=== PATIENT | female | born 1950 | race Caucasian/White ===

== ENCOUNTER 2018-06-28 13:51 | Inpatient (IN) ==
[2018-06-28 15:11] LABS: Basophils % 0.2 %; Hematocrit 33.9 % (35.3-44.9); Hemoglobin 11.3 g/dL (11.5-15.4); Immature Granulocytes % 1.8 % (0-4); Lymphocytes % 5.8 %; Mean Corpuscular HGB Conc 33.3 g/dL (31.6-35.5); Mean Corpuscular Volume 89.9 fL (83.0-100.0); Mean Platelet Volume 10.3 fL (9.4-12.4); Monocytes # 1.4 K/mcL (0.0-1.3); Monocytes % 6.1 %; Neutrophils # 20.1 K/mcL (1.6-8.9); Platelet Count 321 K/mcL (140-400); Red Blood Count 3.77 M/mcL (3.82-4.97); Red Cell Distribution Width 14.7 % (11.5-14.5); Segmented Neutrophils % 86.1 %
[2018-06-28 15:17] LABS: Basophils # 0.1 K/mcL (0.0-0.2); Lymphocytes # 1.4 K/mcL (0.6-4.6)
[2018-06-28 15:25] LABS: BUN/Creatinine Ratio 25 (6-26); Blood Urea Nitrogen 16 mg/dL (8-23); Calcium 9.5 mg/dL (8.6-10.3); Carbon Dioxide 25 mEq/L (23-29); Chloride 95 mEq/L (98-107); Glucose 149 mg/dL (70-105); Osmolality,Calculated 280 (280-300); Potassium 3.2 mEq/L (3.5-5.1); Sodium 133 mEq/L (136-145); eGFR For Non-African Americans > 60 (> 60)
--- NOTE | 2018-06-28 15:41 | Emergency Department Note ---
Disposition Clinical Impression: Elevated troponin I level, Hypokalemia Pneumonia Qualifiers: Pneumonia type: due to unspecified organism Laterality: right Lung location: lower lobe of lung Qualified Code(s): J18.1 - Lobar pneumonia, unspecified organism Sepsis Qualifiers: Sepsis type: sepsis due to unspecified organism Qualified Code(s): A41.9 - Sepsis, unspecified organism Disposition: Admitted As Inpatient Condition: Fair Referrals: Tricia Carey CNP [Primary Care Provider] - Forms: ED Satisfaction Letter, Work/School Release Time of Disposition: 15:58 General Adult HPI - General Chief complaint: ED General Medical Stated complaint: Fatigue/Cough Time Seen by Provider: 06/28/18 14:33 Source: patient Mode of arrival: ambulatory Limitations: no limitations Nursing Notes Reviewed: Yes Vital Signs Reviewed: Yes - History of Present Illness HPI Narrative: The patient is a 67 year old female who presented with generalized weakness and fatigue. She stated she felt very tired 2 days ago and went to sleep and did not leave her bed until this morning when her family brought her to the hospital. She did not leave her bed to use the bathroom, did not drink water or eat, and did not take any of her medications. Her family brought her to the ED at [facility] where she was apparently diagnosed with pneumonia and was told she needed admission but the family stated they did not trust [facility] so they left the ED and brought her here. She was given IV fluids and an antibiotic there according to the patient. She denies cough, shortness of breath, chest pain, abdominal pain, dysuria, nausea, vomiting. She reports a headache and diarrhea this morning. She denied hematochezia and melena and recent falls/trauma. She has a history of Rheumatoid arthritis and is on Xeljanz which is an immune suppressant, hypertension, and type 2 diabetes mellitus. The patient denies having COPD. Pain Scale: 0 Consistency: Worsening Improves with: nothing Worsens with: nothing Associated symptoms: Reports: fever/chills, weakness. Denies: confusion, chest pain, cough, nausea/vomiting, shortness of breath - Related Data Home Medications Medication Instructions Recorded Confirmed Cholecalciferol (Vitamin D3) 5,000 unit PO BID 11/01/15 06/24/16 [Vitamin D3] Diclofenac Sodium [Voltaren] 1 appl TP BID 11/01/15 06/24/16 Esomeprazole Magnesium [Nexium] 40 mg PO DAILY 11/01/15 06/24/16 Fenofibrate Nanocrystallized 145 mg PO DAILY 11/01/15 06/24/16 [Tricor] Ferrous Gluconate [Iron] 256 mg PO BID 11/01/15 06/24/16 Folic Acid 1 mg PO DAILY 11/01/15 06/24/16 Lisinopril 2.5 mg PO DAILY 11/01/15 06/24/16 Meloxicam [Mobic] 15 mg PO DAILY 11/01/15 06/24/16 Metformin HCl [Fortamet] 500 mg PO BID 11/01/15 06/24/16 Methotrexate Sodium [Trexall] 20 mg PO QWEEK 11/01/15 06/24/16 Pramipexole Di-HCl [Pramipexole 2 tab PO HS 11/01/15 06/24/16 Dihydrochloride] Rosuvastatin [Crestor] 20 mg PO DAILY 11/01/15 06/24/16 hydroCHLOROthiazide 12.5 mg PO DAILY 11/01/15 06/24/16 [Hydrochlorothiazide] Aspirin 81 mg PO DAILY 06/24/16 06/24/16 Gabapentin [Neurontin] 600 mg PO TID 06/24/16 06/24/16 Loratadine [Claritin] 10 mg PO DAILY 06/24/16 06/24/16 traMADol [Ultram] 100 mg PO Q6H PRN 06/24/16 06/24/16 Previous Rx's Medication Instructions Recorded Acetaminophen [Tylenol] 1,000 mg PO Q6HR PRN #0 04/20/17 Allergies Allergy/AdvReac Type Severity Reaction Status Date / Time levofloxacin [From Levaquin] Allergy Hives Verified 06/24/16 08:07 Sulfa (Sulfonamide Allergy Hives Verified 06/24/16 08:07 Antibiotics) All systems ED: reviewed and negative except as stated. Constitutional: Reports: weakness. Denies: fever, chills, weight change Eyes: Denies: eye pain, eye discharge, vision change Cardiovascular: Denies: chest pain, palpitations, dyspnea on exertion, edema, syncope Respiratory: Denies: cough, dyspnea, wheezes, hemoptysis, stridor Gastrointestinal: Reports: diarrhea. Denies: abdominal pain, nausea, vomiting, constipation, hematemesis, melena, hematochezia Genitourinary: Denies: dysuria, frequency, hematuria, discharge Musculoskeletal: Denies: back pain, neck pain, arthralgia, myalgia Integumentary: Denies: rash, abrasion, lesions Neurological: Reports: headache. Denies: numbness, paresthesias, confusion, abnormal gait, vertigo Endocrine: Reports: fatigue Past Medical History - Past Medical History Attestation: Yes The following information was validated with the patient. Source: patient Medical history: Reports: arthritis (rheumatoid), diabetes, GERD, hyperlipidemia , hypertension, RA, other. Denies: COPD Surgical history: Reports: appendectomy, cholecystectomy, knee replacement, orthopedic, other, sinus surgery, other Psychiatric history: Reports: no psych history - Social History Smoking Status: Never smoker Smokeless Tobacco Status: Yes Alcohol use: Reports: none Drug use: Reports: none Physical Exam - General Limitations: no limitations General appearance: alert - Head Head exam: atraumatic, normocephalic - Eye Eye exam: Present: EOMI. Absent: scleral icterus - Neck Neck exam: Present: normal inspection, full ROM, trachea midline - Chest Chest inspection: Present: normal inspection, symmetric chest wall rise - Respiratory Respiratory exam: Present: other (right lower lung with inspiratory crackles). Absent: respiratory distress - Cardiovascular Cardiovascular exam: Present: normal rhythm, tachycardia, normal heart sounds - Abdominal Exam Abdominal exam: Present: soft, Non-Tender. Absent: tenderness, distention, guarding, rebound, rigidity - Extremities Exam Extremities exam: Present: normal inspection, full ROM. Absent: tenderness, pedal edema - Neurological Exam Neurological exam: Present: alert, oriented X3, CN II-XII intact - Skin Skin exam: Present: warm. Absent: cyanosis Course Course Narrative: Patient seen and examined. Complaint of generalized weakness worse over the last several days. Has been bedbound for the last 2 days due to being so weak. She was seen at [facility] and diagnosed with pneumonia. They wanted her to be admitted to the hospital but patient states she wanted to have a evaluation by a different hospital. She presents here and does not have any of her paperwork. States they gave her a dose of antibiotics there. We discussed with [facility] who has sent her records. They had given her a dose of IV Rocephin and sent her home with a prescription for azithromycin. Patient's lab work had been repeated prior to us receiving the paperwork from [facility]. Does show a leukocytosis of 23,000 and patient is tachycardic. With this as well as other source of infection being in the long, treat as sepsis. We will give a liter of fluids as well as supplement the antibiotics with azithromycin to treat for community-acquired pneumonia. I discussed with the hospitalist Dr. Robles who has accepted patient for admission. Vital Signs Temperature 98.6 F 06/28/18 13:58 Pulse Rate 140 06/28/18 13:58 Respiratory Rate 24 06/28/18 13:58 Blood Pressure 148/58 06/28/18 13:58 O2 Sat by Pulse Oximetry 99 06/28/18 13:58 Temperature 98.6 F 06/28/18 14:27 Pulse Rate 105 06/28/18 16:18 Respiratory Rate 18 06/28/18 16:18 Blood Pressure 129/83 06/28/18 16:18 O2 Sat by Pulse Oximetry 94 06/28/18 16:18 Oxygen Delivery Oxygen Delivery Room Air Medical Decision Making - Medical Records Medical records reviewed: Yes I reviewed the patient's medical records. - Lab Data Lab results reviewed: Yes I reviewed the patient's lab results. Result diagrams: 06/28/18 14:41 06/28/18 14:41 Lab Results 06/28/18 06/28/18 06/28/18 Range/Units 14:41 14:41 14:41 WBC 23.3 H (4.3-11.1) K/mcL RBC 3.77 L (3.82-4.97) M/mcL Hgb 11.3 L (11.5-15.4) g/dL Hct 33.9 L (35.3-44.9) % MCV 89.9 (83.0-100.0) fL MCH 30.0 (28.0-33.3) pg MCHC 33.3 (31.6-35.5) g/dL RDW 14.7 H (11.5-14.5) % Plt Count 321 (140-400) K/mcL MPV 10.3 (9.4-12.4) fL Immature Gran % 1.8 (0-4) % Seg Neutrophils % 86.1 % Lymphocytes % 5.8 % Monocytes % 6.1 % Eosinophils % 0.0 % Basophils % 0.2 % Neutrophils # 20.1 H (1.6-8.9) K/mcL Lymphocytes # 1.4 (0.6-4.6) K/mcL Monocytes # 1.4 H (0.0-1.3) K/mcL Eosinophils # 0.0 (0.0-0.6) K/mcL Basophils # 0.1 (0.0-0.2) K/mcL Platelet Estimate Normal (Normal) Sodium 133 L (136-145) mEq/L Potassium 3.2 L (3.5-5.1) mEq/L Chloride 95 L (98-107) mEq/L Carbon Dioxide 25 (23-29) mEq/L BUN 16 (8-23) mg/dL Creatinine 0.64 (0.60-1.20) mg/dL Est GFR ( Amer) > 60 (> 60) Est GFR (Non-Af Amer) > 60 (> 60) BUN/Creatinine Ratio 25 (6-26) Glucose 149 H (70-105) mg/dL Calculated Osmolality 280 (280-300) Lactic Acid (0.5-2.2) mmol/L Calcium 9.5 (8.6-10.3) mg/dL Creatine Kinase 390 H (30-223) Units/L Troponin I 0.07 H* (< 0.04) ng/mL B-Natriuretic Peptide 218 H (Less than 100) pg/mL 06/28/18 Range/Units 15:03 WBC (4.3-11.1) K/mcL RBC (3.82-4.97) M/mcL Hgb (11.5-15.4) g/dL Hct (35.3-44.9) % MCV (83.0-100.0) fL MCH (28.0-33.3) pg MCHC (31.6-35.5) g/dL RDW (11.5-14.5) % Plt Count (140-400) K/mcL MPV (9.4-12.4) fL Immature Gran % (0-4) % Seg Neutrophils % % Lymphocytes % % Monocytes % % Eosinophils % % Basophils % % Neutrophils # (1.6-8.9) K/mcL Lymphocytes # (0.6-4.6) K/mcL Monocytes # (0.0-1.3) K/mcL Eosinophils # (0.0-0.6) K/mcL Basophils # (0.0-0.2) K/mcL Platelet Estimate (Normal) Sodium (136-145) mEq/L Potassium (3.5-5.1) mEq/L Chloride (98-107) mEq/L Carbon Dioxide (23-29) mEq/L BUN (8-23) mg/dL Creatinine (0.60-1.20) mg/dL Est GFR ( Amer) (> 60) Est GFR (Non-Af Amer) (> 60) BUN/Creatinine Ratio (6-26) Glucose (70-105) mg/dL Calculated Osmolality (280-300) Lactic Acid 1.6 (0.5-2.2) mmol/L Calcium (8.6-10.3) mg/dL Creatine Kinase (30-223) Units/L Troponin I (< 0.04) ng/mL B-Natriuretic Peptide (Less than 100) pg/mL - Radiology Data Radiology results reviewed: Yes I reviewed the patient's radiology results. Chest X-Ray 06/28/18 14:41 IMPRESSION: Questionable small nodular right mid to lower lung density, not definitely seen on the prior study. Although the findings could represent focal airspace disease or superimposition of shadows, short-term follow-up to resolution is recommended to exclude underlying neoplasm. D/ / Lyndsay Kapoor Cha, MD / Lyndsay Kapoor Cha, MD Interpreting Provider: Lyndsay Kapoor Cha, MD - EKG Data EKG #1 EKG attestation: Yes I reviewed and interpreted this EKG. EKG results narrative: EKG done at 1506 shows normal sinus rhythm with a rate of [address] elevation or depression. Normal axis. Unchanged from prior EKG done 2015.
[2018-06-28] MEDS ORDERED: Azithromycin 500 MG in D5% in Water 250 ML IVPB ONE (15:51)
[2018-06-28] MEDS ORDERED: cefTRIAXone 2,000 MG in 0.9 % Sodium Chloride Mini Bag 100 ML IVPB ONE (15:51)
[2018-06-28 15:57] LABS: Creatine Kinase 390 Units/L (30-223)
[2018-06-28 16:00] LABS: Troponin I 0.07 ng/mL (< 0.04)
[2018-06-28] MEDS ORDERED: Aspirin 325 MG TABLET PO ONE (16:02)
[2018-06-28] MEDS ORDERED: 0.9 % Sodium Chloride 1,000 ML IVC ONE (16:06)
[2018-06-28] MEDS ORDERED: Naloxone 0.4 MG/ML INJ IVP PRN (16:16)
[2018-06-28 16:19] LABS: Platelet Estimate Normal (Normal)
--- NOTE | 2018-06-28 16:39 | Emergency Department Note ---
Disposition Clinical Impression: Community acquired pneumonia Disposition: Admitted As Inpatient Condition: Fair Referrals: Tricia Carey CNP [Primary Care Provider] - Forms: ED Satisfaction Letter, Work/School Release General Adult HPI - General Chief complaint: ED General Medical Stated complaint: Fatigue/Cough Time Seen by Provider: 06/28/18 14:33 Source: patient Mode of arrival: ambulatory Limitations: no limitations Nursing Notes Reviewed: Yes Vital Signs Reviewed: Yes - History of Present Illness Pain Scale: 0 - Related Data Home Medications Medication Instructions Recorded Confirmed Diclofenac Sodium [Voltaren] 1 appl TP BID 11/01/15 06/24/16 Esomeprazole Magnesium [Nexium] 40 mg PO DAILY 11/01/15 06/24/16 Fenofibrate Nanocrystallized 145 mg PO DAILY 11/01/15 06/24/16 [Tricor] Ferrous Gluconate [Iron] 256 mg PO BID 11/01/15 06/24/16 Folic Acid 1 mg PO DAILY 11/01/15 06/24/16 Lisinopril 2.5 mg PO DAILY 11/01/15 06/24/16 Meloxicam [Mobic] 15 mg PO DAILY 11/01/15 06/24/16 Pramipexole Di-HCl [Pramipexole 2 tab PO HS 11/01/15 06/24/16 Dihydrochloride] Rosuvastatin [Crestor] 20 mg PO DAILY 11/01/15 06/24/16 hydroCHLOROthiazide 12.5 mg PO DAILY 11/01/15 06/24/16 [Hydrochlorothiazide] Aspirin 81 mg PO DAILY 06/24/16 06/24/16 Acetaminophen [Tylenol] 1,000 mg PO Q6HR PRN 06/28/18 06/28/18 Cetirizine HCl [Zyrtec] 10 mg PO DAILY 06/28/18 06/28/18 Cholecalciferol (D-3) [Vitamin D] 5,000 unit PO DAILY 06/28/18 06/28/18 Metformin HCl 500 mg PO BID 06/28/18 06/28/18 Methotrexate [Otrexup] 7.5 mg PO TH 06/28/18 06/28/18 Tofacitinib Citrate [Xeljanz Xr] 1 tab PO DAILY 06/28/18 06/28/18 Tramadol HCl [Ultram] 100 mg PO QID PRN 06/28/18 06/28/18 Allergies Allergy/AdvReac Type Severity Reaction Status Date / Time levofloxacin [From Levaquin] Allergy Hives Verified 06/24/16 08:07 Sulfa (Sulfonamide Allergy Hives Verified 06/24/16 08:07 Antibiotics) Constitutional: Reports: weakness. Denies: fever, chills, weight change Eyes: Denies: eye pain, eye discharge, vision change Cardiovascular: Denies: chest pain, palpitations, dyspnea on exertion, edema, syncope Respiratory: Denies: cough, dyspnea, wheezes, hemoptysis, stridor Gastrointestinal: Reports: diarrhea. Denies: abdominal pain, nausea, vomiting, constipation, hematemesis, melena, hematochezia Genitourinary: Denies: dysuria, frequency, hematuria, discharge Musculoskeletal: Denies: back pain, neck pain, arthralgia, myalgia Integumentary: Denies: rash, abrasion, lesions Neurological: Reports: headache. Denies: numbness, paresthesias, confusion, abnormal gait, vertigo Endocrine: Reports: fatigue Past Medical History - Past Medical History Medical history: Reports: arthritis (rheumatoid), diabetes, GERD, hyperlipidemia , hypertension, RA, other. Denies: COPD Surgical history: Reports: appendectomy, cholecystectomy, knee replacement, orthopedic, other, sinus surgery, other Psychiatric history: Reports: no psych history - Social History Smoking Status: Never smoker Smokeless Tobacco Status: Yes Alcohol use: Reports: none Drug use: Reports: none Physical Exam - General Limitations: no limitations General appearance: alert Course Vital Signs Temperature 98.6 F 06/28/18 13:58 Pulse Rate 140 06/28/18 13:58 Respiratory Rate 24 06/28/18 13:58 Blood Pressure 148/58 06/28/18 13:58 O2 Sat by Pulse Oximetry 99 06/28/18 13:58 Temperature 98.6 F 06/28/18 14:27 Pulse Rate 140 06/28/18 14:27 Respiratory Rate 24 06/28/18 14:27 Blood Pressure 148/58 06/28/18 14:27 O2 Sat by Pulse Oximetry 99 06/28/18 14:27 Oxygen Delivery Oxygen Delivery Room Air Medical Decision Making - Lab Data Result diagrams: 06/28/18 14:41 06/28/18 14:41 Lab Results 06/28/18 06/28/18 06/28/18 Range/Units 14:41 14:41 14:41 WBC 23.3 H (4.3-11.1) K/mcL RBC 3.77 L (3.82-4.97) M/mcL Hgb 11.3 L (11.5-15.4) g/dL Hct 33.9 L (35.3-44.9) % MCV 89.9 (83.0-100.0) fL MCH 30.0 (28.0-33.3) pg MCHC 33.3 (31.6-35.5) g/dL RDW 14.7 H (11.5-14.5) % Plt Count 321 (140-400) K/mcL MPV 10.3 (9.4-12.4) fL Sodium 133 L (136-145) mEq/L Potassium 3.2 L (3.5-5.1) mEq/L Chloride 95 L (98-107) mEq/L Carbon Dioxide 25 (23-29) mEq/L BUN 16 (8-23) mg/dL Creatinine 0.64 (0.60-1.20) mg/dL Est GFR ( Amer) > 60 (> 60) Est GFR (Non-Af Amer) > 60 (> 60) BUN/Creatinine Ratio 25 (6-26) Glucose 149 H (70-105) mg/dL Calculated Osmolality 280 (280-300) Lactic Acid (0.5-2.2) mmol/L Calcium 9.5 (8.6-10.3) mg/dL Creatine Kinase 390 H (30-223) Units/L Troponin I 0.07 H* (< 0.04) ng/mL B-Natriuretic Peptide 218 H (Less than 100) pg/mL 06/28/18 Range/Units 15:03 WBC (4.3-11.1) K/mcL RBC (3.82-4.97) M/mcL Hgb (11.5-15.4) g/dL Hct (35.3-44.9) % MCV (83.0-100.0) fL MCH (28.0-33.3) pg MCHC (31.6-35.5) g/dL RDW (11.5-14.5) % Plt Count (140-400) K/mcL MPV (9.4-12.4) fL Sodium (136-145) mEq/L Potassium (3.5-5.1) mEq/L Chloride (98-107) mEq/L Carbon Dioxide (23-29) mEq/L BUN (8-23) mg/dL Creatinine (0.60-1.20) mg/dL Est GFR ( Amer) (> 60) Est GFR (Non-Af Amer) (> 60) BUN/Creatinine Ratio (6-26) Glucose (70-105) mg/dL Calculated Osmolality (280-300) Lactic Acid 1.6 (0.5-2.2) mmol/L Calcium (8.6-10.3) mg/dL Creatine Kinase (30-223) Units/L Troponin I (< 0.04) ng/mL B-Natriuretic Peptide (Less than 100) pg/mL Attestation Statement - Attestation Attestation: I, Luan Blum, examined this patient and my medical decision-making was reviewed with the PER DIEM PHYSICAL THERAPIST/PA/Advanced Practice Nurse/Resident Physician. I agree with the documented findings, disposition and treatment plan as described except to the extent set forth below. 67-year-old female presents emergency Department with concerns of difficulty breathing, weakness, fatigue. Patient states she has had difficulty getting out of bed secondary to weakness the past 2-3 days. Patient was initially evaluated at [facility] and diagnosed with a right lower lobe pneumonia. They recommended admission to the hospital however she left AGAINST MEDICAL ADVICE from the hospital stating that she wanted to be admitted at [facility]. Patient arrived to the emergency Department with tachycardia to 140. I spoke with the physician who took care of her at [facility] who stated that she received Rocephin in the emergency Department however she was discharged with prescription of azithromycin but did not receive it there. Patient has a significantly elevated white blood cell count. She will be admitted to the hospital for further care and evaluation of likely community-acquired pneumonia
[2018-06-28 16:40] LABS: Bilirubin,Urine Negative (Negative); Blood,Urine Moderate (Negative); Clarity,Urine Clear (Clear); Color,Urine Yellow (Yellow); Glucose,Urine (UA) 250 mg/dL (Normal); Ketones,Urine Negative (Negative); Leukocyte Esterase,Urine Negative (Negative); Nitrite,Urine Negative (Negative); PH,Urine 5.5 pH Units (5.0-8.0); Protein,Urine >=300 mg/dL (Neg-Trace); Specific Gravity,Urine >= 1.030 (1.010-1.025); Urobilinogen,Urine Normal (Normal)
[2018-06-28 16:44] LABS: INR 1.3; Prothrombin Time 14.5 Seconds (9.4-12.1)
[2018-06-28 16:46] LABS: Activated Partial Thrombo Time 26.6 Seconds (26.0-36.0)
[2018-06-28 16:51] LABS: Bacteria,Urine None Seen per hpf (None-Few); Hyaline Casts,Urine Few per lpf (None-Few); RBC,Urine 0-3 per hpf (0-3); Squamous Epithelial Cell,Urine Many per lpf (None-Few); WBC,Urine 15-30 per hpf (0-3)
[2018-06-28 16:52] LABS: Magnesium 1.3 mg/dL (1.6-2.6); Phosphorous 1.4 mg/dL (2.7-4.5)
--- NOTE | 2018-06-28 17:20 | Internal Med History&Physical ---
Date of Encounter: 06/28/18 Time of Encounter: 17:15 Internal Medicine - H&P: HPI Chief complaint: fatigue Admitted From: Home Plans for Post Hospital Care: Home History of present illness: 67-year-old former smoker female with history of rheumatoid arthritis on Xeljanz and Mtx presents to the emergency department with complaint of generalized weakness and fatigue. As per patient her symptoms started about 2 days ago and have progressively worsened. She went to bed 2 days before admission and was so fatigued she did not get out of bed until the morning of admission day. She had lost her appetite and did not eat or drink for the past 48 hours. She cannot recall alleviating or aggravating factors to her symptoms. She does report that she developed rhinorrhea with yellow discharge that started about 2 days ago. She also reports mild dry cough without any sputum. She denies dyspnea but is a former smoker who quit few years ago. She reports that she takes only one inhaler and is only for when she has sore throat. Her family were alarmed by her weakness and she was taken to [facility] where she was diagnosed with pneumonia and was given ceftriaxone and Zithromax however she signed out AMA because she wanted to get treated at [facility]. Currently she denies any fever, chills, palpitations, chest pain, shortness of breath, nausea, vomiting, diarrhea, neck stiffness, headache, recent falls, recent chest trauma, leg swelling, history of blood clots, loss of function in her extremities. Past Med Surg Social Fam HX - Past Medical History Medical history: arthritis (rheumatoid), diabetes, GERD, hyperlipidemia, hypertension, RA, other Additional medical history: CORITSONE INJECTIONS B/L WRISTS Psychiatric history: no psych history - Past Surgical History Surgical History: appendectomy, cholecystectomy, knee replacement, orthopedic, other, sinus surgery, other Additional surgical history: BONE STIMULATOR PLACEMENT AND REMOVAL (WIRES STILL INTACT), BILATERAL KNEE REPLACEMENT. Right shoulder. bilat CTR - Social History Smoking Status: Never smoker Smokeless Tobacco Status: Yes Alcohol use: none Drug use: none - Family History Mother Living Status: Hx Family Endocrine Disorder: Yes Internal Medicine - H&P: Meds Diclofenac Sodium [Voltaren] 1 appl TP BID 11/01/15 [History] Esomeprazole Magnesium [Nexium] 40 mg PO DAILY 11/01/15 [History] Fenofibrate Nanocrystallized [Tricor] 145 mg PO DAILY 11/01/15 [History] Ferrous Gluconate [Iron] 256 mg PO BID 11/01/15 [History] Folic Acid 1 mg PO DAILY 11/01/15 [History] Lisinopril 2.5 mg PO DAILY 11/01/15 [History] Meloxicam [Mobic] 15 mg PO DAILY 11/01/15 [History] Pramipexole Di-HCl [Pramipexole Dihydrochloride] 2 tab PO HS 11/01/15 [History] Rosuvastatin [Crestor] 20 mg PO DAILY 11/01/15 [History] hydroCHLOROthiazide [Hydrochlorothiazide] 12.5 mg PO DAILY 11/01/15 [History] Aspirin 81 mg PO DAILY 06/24/16 [History] Acetaminophen [Tylenol] 1,000 mg PO Q6HR PRN 06/28/18 [History] Cetirizine HCl [Zyrtec] 10 mg PO DAILY 06/28/18 [History] Cholecalciferol (D-3) [Vitamin D] 5,000 unit PO DAILY 06/28/18 [History] Metformin HCl 500 mg PO BID 06/28/18 [History] Methotrexate [Otrexup] 7.5 mg PO TH 06/28/18 [History] Tofacitinib Citrate [Xeljanz Xr] 1 tab PO DAILY 06/28/18 [History] Tramadol HCl [Ultram] 100 mg PO QID PRN 06/28/18 [History] 3 Allergy/AdvReac Type Severity Reaction Status Date / Time levofloxacin [From Levaquin] Allergy Hives Verified 06/24/16 08:07 Sulfa (Sulfonamide Allergy Hives Verified 06/24/16 08:07 Antibiotics) All Systems PM: review of systems was performed and is negative for pertinent findings except as documented above in the HPI. - Constitutional Vitals: Temp Pulse Resp BP Pulse Ox 98.6 F 105 18 129/83 94 06/28/18 14:27 06/28/18 16:18 06/28/18 16:18 06/28/18 16:18 06/28/18 16:18 Exam: Family at bedside General: Patient is alert, oriented, no acute distress, speaks in full sentences , overweight Head: atraumatic, normocephalic, Eye: normal appearance, PERRL, no scleral icterus, no conjunctival injection ENT: mucous membranes moist, normal external ear exam Neck: normal inspection, trachea midline, full ROM, no carotid bruits Chest: normal inspection, symmetric chest rise Respiratory: Good respiratory effort. Has crackles in the right posterior lung field infrascapularly, left posterior lung field is clear, no wheezing Cardiovascular: Tachycardic. s1 and s2 No clicks, rubs, gallops, or murmors. Abdomen: Bowel sounds present normoactive x-4 quadrants. Abdomen is soft, nondistended. no Epigastric tenderness. No guarding or rebound. No organomegaly noted, obese musculoskeletal: Spontaneously moving all extremities. no edema, no calf tenderness, all her deviation and RA nodules on the PIP and DIP bilateral hands Skin: warm, dry, intact. Neuro: Alert and oriented x4. Sensation light touch intact. Cranial nerves 2- 12 is intact. Not aphasic, rapid hand movements intact, [id number] intact, Psych: Patient's affect is normal Internal Med - H&P Results - Labs CBC & Chem 7: 06/28/18 14:41 06/28/18 14:41 - EKG Data -: EKG Interpreted by Myself Rate: tachycardia (non-specific ST-T abnormalities ) - Assessment and plan (1) Pneumonia Current Visit: Yes Status: Acute Assessment and plan: Patient with right lower lobe pneumonia Immunocompromised on Xeljanz for RA Vancomycin, Zosyn, Zithromax Received ceftriaxone and Zithromax in the ED Will de-escalate as per cultures Urine antigens- for Legionella and strep pneumonia Sputum cultures CT chest respiratory viral panel Qualifiers: Pneumonia type: due to unspecified organism Laterality: right Lung location: lower lobe of lung Qualified Code(s): J18.1 - Lobar pneumonia, unspecified organism (2) Sepsis Current Visit: Yes Status: Acute Assessment and plan: On presentation patient was tachycardic in the 140s, leukocytosis 23.3 neutrophilic predominance Lactic acid negative IV fluid bolus was started in the ED- we will continue with maintenance fluid, watch for overload Tachycardia trended down to 105 Received ceftriaxone and azithromycin in the ED We will start her on vancomycin, zithromax and Zosyn given she is immunocompromised Urine antigens Blood cultures Sputum culture Vital signs as per protocol CT chest Qualifiers: Sepsis type: sepsis due to unspecified organism Qualified Code(s): A41.9 - Sepsis, unspecified organism (3) Elevated troponin I level Current Visit: Yes Status: Acute Assessment and plan: Most likely secondary to supply versus demand mismatch due to tachycardia from sepsis Was loaded with aspirin in the ED Follow troponin every 6 hours Follow EKG with every 6 hours if Troponin jumps and patient has chest pain or significant EKG changes consider starting heparin drip and calling her etiology TTE utox (4) Hypokalemia Current Visit: Yes Status: Acute Assessment and plan: Replaced with 40 and Jimena's orally in the ED wall follow BMP in the morning Magnesium (5) Hypomagnesemia Current Visit: Yes Status: Acute Assessment and plan: replaced follow in the AM (6) Hypophosphatemia Current Visit: Yes Status: Acute Assessment and plan: replaced follow in the AM alcohol level (7) Overweight Current Visit: Yes Status: Acute Assessment and plan: was counseled on nutrition (8) Diabetes mellitus Current Visit: Yes Status: Acute Assessment and plan: Hold oral hypoglycemics Start low-dose sliding scale insulin Fingersticks every 6 hours Qualifiers: Diabetes mellitus type: type 2 Diabetes mellitus residential insulin use: without residential use Diabetes mellitus complication status: without complication Qualified Code(s): E11.9 - Type 2 diabetes mellitus without complications (9) DVT prophylaxis Current Visit: Yes Status: Acute Assessment and plan: heparin sc - Time Spent With Patient Total time spent is greater than 50% in coordination of care (as documented) at patient's floor/unit and/or counseling patient:
[2018-06-28] MEDS ORDERED: *HR* Dextrose 50 % in Water (Syg) 50 ML SYRINGE IVP PRN (18:21)
[2018-06-28] MEDS ORDERED: Dextrose Gel 15 GM/37.5 ML TUBE PO PRN ×2 (18:21)
[2018-06-28] MEDS ORDERED: D5% in Water 1,000 ML IVC PRN (18:21)
[2018-06-28] MEDS ORDERED: 0.9 % Sodium Chloride 1,000 ML IVC SCH (18:30)
[2018-06-28] MEDS: Acetaminophen 325 MG TABLET PO PRN (19:57)
[2018-06-28] MEDS: traMADol 50 MG TABLET PO PRN (21:50)
[2018-06-28] MEDS: Diclofenac Sodium [Voltaren] 1 APPL TP SCH (21:52)
[2018-06-29] MEDS: Piperacillin/Tazobactam 3.375 GM in 0.9 % Sodium Chloride Mini Bag 100 ML IVPB SCH ×3 (01:19→18:47)
[2018-06-29] MEDS: *HR* Heparin 5,000 UNIT/ML VIAL SQ SCH ×3 (01:21→18:47)
[2018-06-29 01:44] LABS: Basophils % 0.2 %; Eosinophils # 0.1 K/mcL (0.0-0.6); Eosinophils % 0.3 %; Hematocrit 33.1 % (35.3-44.9); Hemoglobin 10.9 g/dL (11.5-15.4); Immature Granulocytes % 1.6 % (0-4); Lymphocytes # 1.2 K/mcL (0.6-4.6); Lymphocytes % 5.5 %; Mean Corpuscular HGB Conc 32.9 g/dL (31.6-35.5); Mean Corpuscular Hemoglobin 30.1 pg (28.0-33.3); Mean Corpuscular Volume 91.4 fL (83.0-100.0); Mean Platelet Volume 10.2 fL (9.4-12.4); Monocytes # 1.4 K/mcL (0.0-1.3); Monocytes % 6.5 %; Neutrophils # 18.3 K/mcL (1.6-8.9); Platelet Count 258 K/mcL (140-400); Red Blood Count 3.62 M/mcL (3.82-4.97); Red Cell Distribution Width 14.6 % (11.5-14.5); Segmented Neutrophils % 85.9 %
[2018-06-29 02:14] LABS: Platelet Estimate Normal (Normal)
[2018-06-29] MEDS: Acetaminophen 325 MG TABLET PO PRN ×2 (02:16→20:14)
[2018-06-29 02:45] LABS: BUN/Creatinine Ratio 21 (6-26); Blood Urea Nitrogen 11 mg/dL (8-23); Calcium 8.8 mg/dL (8.6-10.3); Carbon Dioxide 24 mEq/L (23-29); Chloride 100 mEq/L (98-107); Chol/HDL Ratio 2.8 (0-4.9); Cholesterol 127 mg/dL (< 200); Glucose 163 mg/dL (70-105); HDL Cholesterol 45 mg/dL (40-59); LDL Cholesterol,Calculated 45 mg/dL (0-99); Osmolality,Calculated 281 (280-300); Potassium 3.1 mEq/L (3.5-5.1); Sodium 134 mEq/L (136-145); Triglycerides 185 mg/dL (< 150); eGFR For Non-African Americans > 60 (> 60)
[2018-06-29 06:02] LABS: Adenovirus Not Detected (Not Detect); Bordetella Pertussis Not Detected (Not Detect); Chlamydophila pneumoniae Not Detected (Not Detect); Coronavirus 229E Not Detected (Not Detect); Coronavirus HKU1 Not Detected (Not Detect); Coronavirus NL63 Not Detected (Not Detect); Coronavirus OC43 Not Detected (Not Detect); Human Metapneumovirus Not Detected (Not Detect); Human Rhinovirus/Enterovirus Not Detected (Not Detect); Influenza A Subtype 2009 H1 Not Detected (Not Detect); Influenza A Untypeable Not Detected (Not Detect); Influenza B Not Detected (Not Detect); Mycoplasma pneumoniae Not Detected (Not Detect); Parainfluenza Virus 1 Not Detected (Not Detect); Parainfluenza Virus 2 Not Detected (Not Detect); Parainfluenza Virus 3 Not Detected (Not Detect); Parainfluenza Virus 4 Not Detected (Not Detect); Respiratory Syncytial Virus Not Detected (Not Detect)
[2018-06-29] MEDS: Insulin LISPRO 300 UNITS/3 ML VIAL SQ SCH ×3 (08:00→18:55)
[2018-06-29] MEDS ORDERED: FENOFIBRATE NANOCRYSTALLIZED 145 MG PO SCH (09:00)
[2018-06-29] MEDS: Loratadine 10 MG TABLET PO SCH (09:23)
[2018-06-29] MEDS: Folic Acid 1 MG TABLET PO SCH (09:23)
[2018-06-29] MEDS: Aspirin 81 MG TAB.CHEW PO SCH (09:23)
[2018-06-29] MEDS: traMADol 50 MG TABLET PO PRN ×2 (09:31→20:14)
--- NOTE | 2018-06-29 11:08 | Internal Med Progress Note ---
Hospitalist Progress Note - Encounter Date of Encounter: 06/29/18 Time of Encounter: 11:08 - Subjective Interval History: she is doing better than yesterday. denies SOB, coug, chest pain, palpitations, N/V/D has no pain tolerating Po diet - Exam Vitals: Temp Pulse Resp BP Pulse Ox 97.5 F L 79 16 119/80 99 06/29/18 07:35 06/29/18 07:35 06/29/18 07:35 06/29/18 07:35 06/29/18 07:35 Exam: Family at bedside General: Patient is alert, oriented, no acute distress, speaks in full sentences , overweight Head: atraumatic, normocephalic, Eye: normal appearance, PERRL, no scleral icterus, no conjunctival injection ENT: mucous membranes moist, normal external ear exam Neck: normal inspection, trachea midline, full ROM, no carotid bruits Chest: normal inspection, symmetric chest rise Respiratory: Good respiratory effort. Has crackles in the right posterior lung field infrascapularly, left posterior lung field is clear, no wheezing Cardiovascular: Tachycardic. s1 and s2 No clicks, rubs, gallops, or murmors. Abdomen: Bowel sounds present normoactive x-4 quadrants. Abdomen is soft, nondistended. no Epigastric tenderness. No guarding or rebound. No organomegaly noted, obese musculoskeletal: Spontaneously moving all extremities. no edema, no calf tenderness, all her deviation and RA nodules on the PIP and DIP bilateral hands Skin: warm, dry, intact. Neuro: Alert and oriented x4. Sensation light touch intact. Cranial nerves 2- 12 is intact. Not aphasic, rapid hand movements intact, [id number] intact, Psych: Patient's affect is normal - Assessment and Plan (1) Pneumonia Current Visit: Yes Status: Acute Assessment and Plan: Patient with right lower lobe pneumonia Immunocompromised on Xeljanz for RA Vancomycin, Zosyn, Zithromax- will deescalate as per cultures Received ceftriaxone and Zithromax in the ED Will de-escalate as per cultures Urine antigens- for Legionella and strep pneumonia- pending - nursing staff aware Sputum cultures- pending respiratory viral panel - negative DUO neb Q4H PRN CT chest 06/28- Lungs/pleura: No pulmonary mass lesions. Airspace disease seen throughout the right lower lobe. No pleural effusion. No pulmonary mass lesions. No endobronchial lesion. (2) Sepsis Current Visit: Yes Status: Acute Assessment and Plan: On presentation patient was tachycardic in the 140s, leukocytosis 23.3 neutrophilic predominance Lactic acid negative s/p IV fluid bolus in the ED Tachycardia has resolved Received ceftriaxone and azithromycin in the ED on vancomycin, zithromax and Zosyn given she is immunocompromised Urine antigens- pending Blood cultures 06/28/18- no growth prelim Sputum culture- pending Vital signs as per protocol leukocytosis trending down (3) Elevated troponin I level Current Visit: Yes Status: Acute Assessment and Plan: Most likely secondary to supply versus demand mismatch due to tachycardia from sepsis Was loaded with aspirin in the ED troponin followed and troponin trended down from 0.07=> <0.03=> <0.03 TTE utox- pending - nursing staff aware (4) Hypokalemia Current Visit: Yes Status: Acute Assessment and Plan: Replaced with 40 meq x 2 Magnesium replaced BMP in AM (5) Hypomagnesemia Current Visit: Yes Status: Acute Assessment and Plan: replaced (6) Hypophosphatemia Current Visit: Yes Status: Acute Assessment and Plan: replaced follow in the AM alcohol level (7) Overweight Current Visit: Yes Status: Acute Assessment and Plan: was counseled on nutrition (8) Diabetes mellitus Current Visit: Yes Status: Acute Assessment and Plan: Hold oral hypoglycemics Start low-dose sliding scale insulin Fingersticks every 6 hours (9) DVT prophylaxis Current Visit: Yes Status: Acute Assessment and Plan: heparin sc - Time Spent with Patient Total time spent is greater than 50% in coordination of care (as documented) at patient's floor/unit and/or counseling patient: Internal Medicine: Result - Labs CBC & Chem 7: 06/29/18 01:10 06/29/18 02:13 Labs: Short CBC 06/29/18 Range/Units 01:10 WBC 21.3 H (4.3-11.1) K/mcL Hgb 10.9 L (11.5-15.4) g/dL Hct 33.1 L (35.3-44.9) % Plt Count 258 (140-400) K/mcL Neutrophils # 18.3 H (1.6-8.9) K/mcL BMP 06/29/18 02:13 Sodium 134 L Potassium 3.1 L Chloride 100 Carbon Dioxide 24 BUN 11 Creatinine 0.52 L Glucose 163 H Calcium 8.8 Cardiac Enzymes 06/28/18 06/29/18 Range/Units 21:19 02:13 Troponin I 0.03 < 0.03 (< 0.04) ng/mL - ABG Interpretation ABG results: PT/INR, D-dimer PT 14.5 Seconds (9.4-12.1) H 06/28/18 16:16 Consult Discharge Plan - Plan Referrals: Tricia Carey, RECYCLING OPERATIONS MANAGER [Primary Care Provider] - (1) Pneumonia Qualifiers: Pneumonia type: due to unspecified organism Laterality: right Lung location : lower lobe of lung Qualified Code(s): J18.1 - Lobar pneumonia, unspecified organism (2) Sepsis Qualifiers: Sepsis type: sepsis due to unspecified organism Qualified Code(s): A41.9 - Sepsis, unspecified organism (8) Diabetes mellitus Qualifiers: Diabetes mellitus type: type 2 Diabetes mellitus terminal superintendent insulin use: without terminal superintendent use Diabetes mellitus complication status: without complication Qualified Code(s): E11.9 - Type 2 diabetes mellitus without complications
[2018-06-29] MEDS ORDERED: Ipratropium/Albuterol Neb 3 ML IH PRN (11:19)
[2018-06-29] MEDS: Cholecalciferol (D-3) 1,000 UNIT TABLET PO SCH (12:17)
[2018-06-29] MEDS: Diclofenac Sodium [Voltaren] 1 APPL TP SCH ×2 (12:17→20:08)
[2018-06-29 12:22] LABS: Amphetamine Screen,Urine Negative ng/mL (Cutoff=1000); Barbiturate Screen,Urine Negative ng/mL (Cutoff=200); Benzodiazepines Screen,Urine Negative ng/mL (Cutoff=200); Cannabinoid Screen,Urine Negative ng/mL (Cutoff = 50); Cocaine Screen,Urine Negative ng/mL (Cutoff= 300); Opiate Screen,Urine Negative ng/mL (Cutoff=300); Phencyclidine Screen,Urine Negative ng/mL (Cutoff=25)
[2018-06-29] MEDS ORDERED: cefTRIAXone 2,000 MG in Water for inj. (sterile) 20 ML 20 ML IVP SCH (17:00)
[2018-06-29] MEDS ORDERED: Azithromycin 500 MG in D5% in Water 250 ML IVPB SCH (17:00)
[2018-06-29] MEDS ORDERED: Insulin LISPRO 300 UNITS/3 ML VIAL SQ SCH ×2 (21:00)
[2018-06-30] MEDS: *HR* Heparin 5,000 UNIT/ML VIAL SQ SCH ×2 (00:39→09:47)
[2018-06-30] MEDS: Piperacillin/Tazobactam 3.375 GM in 0.9 % Sodium Chloride Mini Bag 100 ML IVPB SCH ×2 (02:23→09:47)
[2018-06-30 04:35] LABS: Basophils # 0.1 K/mcL (0.0-0.2); Basophils % 0.5 %; Eosinophils # 0.5 K/mcL (0.0-0.6); Eosinophils % 3.2 %; Hematocrit 29.9 % (35.3-44.9); Hemoglobin 9.7 g/dL (11.5-15.4); Immature Granulocytes % 2.5 % (0-4); Lymphocytes # 1.3 K/mcL (0.6-4.6); Lymphocytes % 8.5 %; Mean Corpuscular HGB Conc 32.4 g/dL (31.6-35.5); Mean Corpuscular Hemoglobin 30.2 pg (28.0-33.3); Mean Corpuscular Volume 93.1 fL (83.0-100.0); Mean Platelet Volume 10.7 fL (9.4-12.4); Monocytes # 1.4 K/mcL (0.0-1.3); Monocytes % 8.9 %; Neutrophils # 11.8 K/mcL (1.6-8.9); Nucleated Red Blood Cells 0.1 /100 WBC (0); Platelet Count 285 K/mcL (140-400); Red Blood Count 3.21 M/mcL (3.82-4.97); Red Cell Distribution Width 14.7 % (11.5-14.5); Segmented Neutrophils % 76.4 %
[2018-06-30 04:55] LABS: BUN/Creatinine Ratio 20 (6-26); Blood Urea Nitrogen 10 mg/dL (8-23); Calcium 8.7 mg/dL (8.6-10.3); Carbon Dioxide 25 mEq/L (23-29); Chloride 103 mEq/L (98-107); Glucose 147 mg/dL (70-105); Magnesium 1.4 mg/dL (1.6-2.6); Osmolality,Calculated 282 (280-300); Phosphorous 2.2 mg/dL (2.7-4.5); Potassium 3.6 mEq/L (3.5-5.1); Sodium 135 mEq/L (136-145); eGFR For Non-African Americans > 60 (> 60)
[2018-06-30] MEDS: Insulin LISPRO 300 UNITS/3 ML VIAL SQ SCH ×2 (08:04→12:52)
--- NOTE | 2018-06-30 08:30 | Pulmonology Consult Note ---
<ClarissamegaBethany moreno M - Last Filed: 06/30/18 16:01> Date of Encounter: 06/30/18 Medications and Allergies Diclofenac Sodium [Voltaren] 1 appl TP BID 11/01/15 [History] Esomeprazole Magnesium [Nexium] 40 mg PO DAILY 11/01/15 [History] Fenofibrate Nanocrystallized [Tricor] 145 mg PO DAILY 11/01/15 [History] Ferrous Gluconate [Iron] 256 mg PO BID 11/01/15 [History] Folic Acid 1 mg PO DAILY 11/01/15 [History] Lisinopril 2.5 mg PO DAILY 11/01/15 [History] Meloxicam [Mobic] 15 mg PO DAILY 11/01/15 [History] Pramipexole Di-HCl [Pramipexole Dihydrochloride] 2 tab PO HS 11/01/15 [History] Rosuvastatin [Crestor] 20 mg PO DAILY 11/01/15 [History] hydroCHLOROthiazide [Hydrochlorothiazide] 12.5 mg PO DAILY 11/01/15 [History] Aspirin 81 mg PO DAILY 06/24/16 [History] Acetaminophen [Tylenol] 1,000 mg PO Q6HR PRN 06/28/18 [History] Cetirizine HCl [Zyrtec] 10 mg PO DAILY 06/28/18 [History] Cholecalciferol (D-3) [Vitamin D] 5,000 unit PO DAILY 06/28/18 [History] Metformin HCl 500 mg PO BID 06/28/18 [History] Methotrexate [Otrexup] 7.5 mg PO TH 06/28/18 [History] Tofacitinib Citrate [Xeljanz Xr] 1 tab PO DAILY 06/28/18 [History] Tramadol HCl [Ultram] 100 mg PO QID PRN 06/28/18 [History] Doxycycline 100 mg PO BID 10 Days #20 capsule 06/30/18 [Rx] Ipratropium/Albuterol Neb [Duoneb] 3 ml IH [id number] PRN #10 inhsol 06/30/18 [Rx] Nebulizer and Compressor [Ombra Compressor System] 1 each MC PRN PRN #1 each 03/12 [Rx] 3 Allergy/AdvReac Type Severity Reaction Status Date / Time levofloxacin [From Levaquin] Allergy Hives Verified 06/24/16 08:07 Sulfa (Sulfonamide Allergy Hives Verified 06/24/16 08:07 Antibiotics) All Systems: The remainder of the systems were reviewed and are negative Physical Examination Vital Signs: Vital Signs, Last 4 Hours Pulse Resp BP Pulse Ox 06/30/18 12:34 91 17 157/83 99 Results - Laboratory Findings CBC and BMP: 06/30/18 03:57 06/30/18 03:57 PT/INR, D-dimer PT 14.5 Seconds (9.4-12.1) H 06/28/18 16:16 Abnormal lab findings: Abnormal lab results WBC 15.4 K/mcL (4.3-11.1) H 06/30/18 03:57 RBC 3.21 M/mcL (3.82-4.97) L 06/30/18 03:57 Hgb 9.7 g/dL (11.5-15.4) L 06/30/18 03:57 Hct 29.9 % (35.3-44.9) L 06/30/18 03:57 RDW 14.7 % (11.5-14.5) H 06/30/18 03:57 Neutrophils # 11.8 K/mcL (1.6-8.9) H 06/30/18 03:57 Monocytes # 1.4 K/mcL (0.0-1.3) H 06/30/18 03:57 Nucleated RBCs/100 WBC 0.1 /100 WBC (0) H 06/30/18 03:57 PT 14.5 Seconds (9.4-12.1) H 06/28/18 16:16 Sodium 135 mEq/L (136-145) L 06/30/18 03:57 Creatinine 0.51 mg/dL (0.60-1.20) L 06/30/18 03:57 Glucose 147 mg/dL (70-105) H 06/30/18 03:57 POC Glucose 234 mg/dL (70-99) H 06/29/18 19:46 Phosphorus 2.2 mg/dL (2.7-4.5) L 06/30/18 03:57 Magnesium 1.4 mg/dL (1.6-2.6) L 06/30/18 03:57 Creatine Kinase 390 Units/L (30-223) H 06/28/18 14:41 B-Natriuretic Peptide 218 pg/mL (Less than 100) H 06/28/18 14:41 Triglycerides 185 mg/dL (< 150) H 06/29/18 02:13 VLDL Cholesterol, Calc 37 mg/dL (< 31) H 06/29/18 02:13 Ur Specific Spurgeon >= 1.030 (1.010-1.025) H 06/28/18 16:20 Urine Protein >=300 mg/dL (Neg-Trace) H 06/28/18 16:20 Urine Glucose (UA) 250 mg/dL (Normal) H 06/28/18 16:20 Urine Blood Moderate (Negative) H 06/28/18 16:20 Urine Microscopic WBC 15-30 per hpf (0-3) H 06/28/18 16:20 Ur Squamous Epith Cells Many per lpf (None-Few) H 06/28/18 16:20 - Microbiology Findings Microbiology Findings: Microbiology, Last 48 Hours 06/28/18 16:54 Blood Culture - Preliminary Peripheral Venipuncture Culture is incubating and being continuously monitored for growth. Final report to follow. - Clinical Findings Intake & Output: Intake & Output 06/30/18 06/30/18 06/30/18 07:59 15:59 23:59 Intake Total 440 / 440 240 / 240 Output Total 800 / 800 Balance -360 / -360 240 / 240 Weight 63 kg Consult Discharge Plan - Plan Instructions: Doxycycline (By mouth), Ipratropium/Albuterol (By breathing), Diabetes Mellitus Type 2 in Adults (DC), Sepsis (DC), How to Use a Nebulizer (DC ), How to Use a Nebulizer (GEN), Pneumonia (DC) Referrals: Tricia Carey CNP [Primary Care Provider] - 07/07/18 1:00 pm Pranav Baptiste DPM [Partnered Physician] - 07/16/18 9:50 am Bethany Minor MD [Partnered Physician] - Miguel Angel Shah MD [Partnered Physician] - 07/12/18 8:30 am Prescriptions: Ipratropium/Albuterol Neb [Duoneb] 3 ml IH [id number] PRN #10 inhsol PRN Reason: Dyspnea Doxycycline 100 mg PO BID 10 Days #20 capsule Nebulizer and Compressor [Ombra Compressor System] 1 each MC PRN PRN #1 each PRN Reason: Dyspnea - Attending Attestation I examined this patient and my medical decision-making was reviewed with the Resident Physician. I agree with the documented findings, disposition and treatment plan as described except to the extent set forth below. Patient seen and examined. Labs, radiology, chart personally reviewed. Agree with resident's history and physical, assessment, plan with following comments: FINISHED GOODS STOCK CLERK: Patient follows commands, Pulmonary: Review CT chest and clinically patient has significant improvement and denies any symptoms. She responded very well to antibiotic and discussed with primary team patient can be discharged home on doxycycline and follow-up as outpatient in a month to 2. Patient would need at least chest x-ray to ensure resolution of pneumonia area to him there is any questions or deterioration of symptoms then she can contact clinic sooner than that. Thank you for the consultation. <Neel Goodwin - Last Filed: 06/30/18 16:57> Date of Encounter: 06/30/18 Time of Encounter: 10:45 Assessment and Plan (1) Pneumonia Status: Acute Pt has improved clinically during admission Afebrile No tachypnea Sp02 99% on room air Stable from respiratory perspective at this time. Recommend a course of doxycyline upon discharge. Follow up in 2 months with CXR. Qualifiers: Pneumonia type: due to unspecified organism Laterality: right Lung location: lower lobe of lung Qualified Code(s): J18.1 - Lobar pneumonia, unspecified organism History of Present Illness Consult date: 06/30/18 Requesting physician: Belia Snowden Reason for consult: pneumonia Chief complaint: Cough History of present illness: Ms. Khan is a 67F who was admitted on 06/28 for weakness and fatigue. Pt was also experiencing a dry cough at this time. She was diagnosed with pneumonia at [facility] which was treated with ceftriaxone and azithromycin shortly before she signed out AMA since she wanted to be treated at [place]. CXR on 06/28 was suggestive of some right mid to lower lobe airspace disease, potentially pneumonia. This was confirmed on chest CT on 06/28 as well. Today the pt has no new or acute complaints. States she is feeling much better and is ready to go home. Denies any fever, chills, cough, increased sputum production, chest pain, abdominal pain, nausea, vomiting, headache, numbness, or tingling. States weakness has improved. Past Med Surg Social Fam HX - Past Medical History Medical history: arthritis, diabetes, GERD, hyperlipidemia, hypertension, RA, other Additional medical history: CORITSONE INJECTIONS B/L WRISTS Psychiatric history: no psych history - Past Surgical History Surgical History: appendectomy, cholecystectomy, knee replacement, orthopedic, other, sinus surgery, other Additional surgical history: BONE STIMULATOR PLACEMENT AND REMOVAL (WIRES STILL INTACT), BILATERAL KNEE REPLACEMENT. Right shoulder. bilat CTR - Social History Smoking Status: Never smoker Smokeless Tobacco Status: Yes Alcohol use: none Drug use: none - Family History Mother Living Status: Hx Family Endocrine Disorder: Yes All Systems: The remainder of the systems were reviewed and are negative - Constitutional Constitutional: weakness, no chills, no fever(s), no headache(s) - Cardiovascular Cardiovascular: dyspnea, no chest pain, no diaphoresis, no edema, no palpitations - Respiratory Respiratory: cough, dyspnea, no wheezing, no chest congestion, no excessive phlegm production, no change in phlegm color - Gastrointestinal Gastrointestinal: no abdominal pain, no nausea, no vomiting - Musculoskeletal Musculoskeletal: weakness, no numbness, no tingling - Neurological Neurological: no confusion, no headache(s), no numbness, no tingling, no weakness Physical Examination Vital Signs: Vital Signs, Last 4 Hours Temp Pulse Resp BP Pulse Ox 06/30/18 07:44 98.2 F 95 19 145/75 97 General appearance: no acute distress Eyes: nonicteric ENT: oropharynx moist Neck: supple, no lymphadenopathy, no JVD Effort: normal Inspection: normal Auscultation: left: wheezes (upper), bilateral: clear Percussion: bilateral: not dull Tactile fremitus: bilateral: normal Cardiovascular: regular rate and rhythm Gastrointestinal: soft, non-tender, non-distended Integumentary: normal Extremities: no cyanosis, no edema, no clubbing, pink and warm Musculoskeletal: no deformities Gait: normal posture normal mental status, non-focal exam mood appropriate, affect normal Results - Laboratory Findings CBC and BMP: 06/30/18 03:57 06/30/18 03:57 PT/INR, D-dimer PT 14.5 Seconds (9.4-12.1) H 06/28/18 16:16 Abnormal lab findings: Abnormal lab results WBC 15.4 K/mcL (4.3-11.1) H 06/30/18 03:57 RBC 3.21 M/mcL (3.82-4.97) L 06/30/18 03:57 Hgb 9.7 g/dL (11.5-15.4) L 06/30/18 03:57 Hct 29.9 % (35.3-44.9) L 06/30/18 03:57 RDW 14.7 % (11.5-14.5) H 06/30/18 03:57 Neutrophils # 11.8 K/mcL (1.6-8.9) H 06/30/18 03:57 Monocytes # 1.4 K/mcL (0.0-1.3) H 06/30/18 03:57 Nucleated RBCs/100 WBC 0.1 /100 WBC (0) H 06/30/18 03:57 PT 14.5 Seconds (9.4-12.1) H 06/28/18 16:16 Sodium 135 mEq/L (136-145) L 06/30/18 03:57 Creatinine 0.51 mg/dL (0.60-1.20) L 06/30/18 03:57 Glucose 147 mg/dL (70-105) H 06/30/18 03:57 POC Glucose 234 mg/dL (70-99) H 06/29/18 19:46 Phosphorus 2.2 mg/dL (2.7-4.5) 06/30/18 03:57 Magnesium 1.4 mg/dL (1.6-2.6) L 06/30/18 03:57 Creatine Kinase 390 Units/L (30-223) H 06/28/18 14:41 B-Natriuretic Peptide 218 pg/mL (Less than 100) H 06/28/18 14:41 Triglycerides 185 mg/dL (< 150) H 06/29/18 02:13 VLDL Cholesterol, Calc 37 mg/dL (< 31) H 06/29/18 02:13 Ur Specific Spurgeon >= 1.030 (1.010-1.025) H 06/28/18 16:20 Urine Protein >=300 mg/dL (Neg-Trace) H 06/28/18 16:20 Urine Glucose (UA) 250 mg/dL (Normal) H 06/28/18 16:20 Urine Blood Moderate (Negative) H 06/28/18 16:20 Urine Microscopic WBC 15-30 per hpf (0-3) H 06/28/18 16:20 Ur Squamous Epith Cells Many per lpf (None-Few) H 06/28/18 16:20 - Microbiology Findings Microbiology Findings: Microbiology, Last 48 Hours 06/28/18 16:54 Blood Culture - Preliminary Peripheral Venipuncture Culture is incubating and being continuously monitored for growth. Final report to follow. - Diagnostic Findings Chest x-ray: report reviewed, image reviewed CT scan - chest: report reviewed, image reviewed - Clinical Findings Intake & Output: Intake & Output 06/29/18 06/30/18 06/30/18 23:59 07:59 15:59 Intake Total 580 / 580 340 / 340 Output Total 450 / 450 800 / 800 Balance 130 / 130 -460 / -460 Weight 63 kg
[2018-06-30] MEDS: Cholecalciferol (D-3) 1,000 UNIT TABLET PO SCH (09:46)
[2018-06-30] MEDS: Aspirin 81 MG TAB.CHEW PO SCH (09:47)
[2018-06-30] MEDS: Loratadine 10 MG TABLET PO SCH (09:47)
[2018-06-30 12:40] VITALS: BP 157/83
[2018-06-30] MEDS ORDERED: Magnesium Oxide 400 MG TABLET PO SCH (12:45)
--- NOTE | 2018-06-30 12:52 | Discharge Summary ---
- NOTES TO OUTPATIENT PROVIDER Notes to Outpatient Provider: with pulmonology in 4 weeks with repeat of CXR. follow with ict sales representative in regards to RA medications. to have CBC and BMP, magneisum and Po4 checked with PCP Orders not resulted at time of discharge: Pending orders 07/01/18 04:00 Basic Metabolic Panel AM 0400 Complete Blood Count [HEME] AM 0400 07/02/18 04:00 Basic Metabolic Panel AM 0400 Complete Blood Count [HEME] AM 0400 Date of Encounter: 06/30/18 Time of Encounter: 12:46 - Discharge Diagnosis (1) Pneumonia Priority: Primary Status: Acute Qualifiers: Pneumonia type: due to unspecified organism Laterality: right Lung location: lower lobe of lung Qualified Code(s): J18.1 - Lobar pneumonia, unspecified organism (2) Sepsis Priority: Secondary Status: Acute Qualifiers: Sepsis type: sepsis due to unspecified organism Qualified Code(s): A41.9 - Sepsis, unspecified organism (3) Elevated troponin I level Priority: Secondary Status: Acute (4) Hypokalemia Priority: Secondary Status: Acute (5) Hypomagnesemia Priority: Secondary Status: Acute (6) Hypophosphatemia Priority: Secondary Status: Acute (7) Overweight Priority: Secondary Status: Acute (8) Diabetes mellitus Priority: Secondary Status: Acute Qualifiers: Diabetes mellitus type: type 2 Diabetes mellitus intermediate designer insulin use: without intermediate designer use Diabetes mellitus complication status: without complication Qualified Code(s): E11.9 - Type 2 diabetes mellitus without complications (9) DVT prophylaxis Priority: Secondary Status: Acute Hospital course: 67-year-old former smoker female with history of rheumatoid arthritis on Xeljanz and Mtx presents to the emergency department with complaint of generalized weakness and fatigue. As per patient her symptoms started about 2 days ago and have progressively worsened. She went to bed 2 days before admission and was so fatigued she did not get out of bed until the morning of admission day. She had lost her appetite and did not eat or drink for the past 48 hours. She cannot recall alleviating or aggravating factors to her symptoms. Her family were alarmed by her weakness and she was taken to [facility] where she was diagnosed with pneumonia and was given ceftriaxone and Zithromax however she signed out AMA because she wanted to get treated at [facility]. While in the ED chest x-ray was performed, results below. Admissions labs showed leukocytosis of 23.3 neutrophilic predominance, she was hypokalemic at 3.2 and had hyponatremia and hypochloremia. She was also found to be tachycardic in the 140s so she was admitted for sepsis secondary to right lower lobe pneumonia. Due to her immune modulator medications for RA she was started on vancomycin and Zosyn and Zithromax. Urine antigens followed and negative Zithromax was discontinued. MRSA screen was negative vancomycin discontinued. Respiratory viral serology panel was negative. Tachycardia resolved and that pressure remained stable. She remained afebrile for 24 hours. Blood cultures obtained on 06/28 remained NGTD. Leukocytosis trended down from 23.3-15.4 on discharge date. Pulmonology was consulted and recommendations followed. She was told to follow-up with her ict sales representative in regards to restarting her rheumatoid arthritis medications. She was prescribed oral antibiotics and was counseled on importance of medication compliance. Electrolytes were replaced, she was told to follow-up with her primary care physician and have labs repeated. She is to follow-up with pulmonology as outpatient and have repeat imaging of her chest in 4 weeks. CXR: IMPRESSION: Questionable small nodular right mid to lower lung density, not definitely seen on the prior study. Although the findings could represent focal airspace disease or superimposition of shadows, short-term follow-up to resolution is recommended to exclude underlying neoplasm. Ct chest: IMPRESSION: 1. Extensive airspace disease in the left lower lobe suggesting pneumonia. 2. Atherosclerotic changes. 3. Fatty infiltration of the liver. TTE: Impressions: Normal LV chamber size and function. LVEF 65%. Mild concentric left ventricular hypertrophy. Normal right ventricular structure and function. No significant valvular abnormality. No pulmonary hypertension. Time spent discussing smoking cessation with patient: 3 to 10 minutes - Time Spent with Patient Total time spent providing and/or coordinating discharge services: Less than 30 minutes - Discharge Medications Prescriptions: Ipratropium/Albuterol Neb [Duoneb] 3 ml IH [id number] PRN #10 inhsol PRN Reason: Dyspnea Doxycycline 100 mg PO BID 10 Days #20 capsule Nebulizer and Compressor [Ombra Compressor System] 1 each MC PRN PRN #1 each PRN Reason: Dyspnea Home Medications: Diclofenac Sodium [Voltaren] 1 appl TP BID 11/01/15 [History] Esomeprazole Magnesium [Nexium] 40 mg PO DAILY 11/01/15 [History] Fenofibrate Nanocrystallized [Tricor] 145 mg PO DAILY 11/01/15 [History] Ferrous Gluconate [Iron] 256 mg PO BID 11/01/15 [History] Folic Acid 1 mg PO DAILY 11/01/15 [History] Lisinopril 2.5 mg PO DAILY 11/01/15 [History] Meloxicam [Mobic] 15 mg PO DAILY 11/01/15 [History] Pramipexole Di-HCl [Pramipexole Dihydrochloride] 2 tab PO HS 11/01/15 [History] Rosuvastatin [Crestor] 20 mg PO DAILY 11/01/15 [History] hydroCHLOROthiazide [Hydrochlorothiazide] 12.5 mg PO DAILY 11/01/15 [History] Aspirin 81 mg PO DAILY 06/24/16 [History] Acetaminophen [Tylenol] 1,000 mg PO Q6HR PRN 06/28/18 [History] Cetirizine HCl [Zyrtec] 10 mg PO DAILY 06/28/18 [History] Cholecalciferol (D-3) [Vitamin D] 5,000 unit PO DAILY 06/28/18 [History] Metformin HCl 500 mg PO BID 06/28/18 [History] Methotrexate [Otrexup] 7.5 mg PO TH 06/28/18 [History] Tofacitinib Citrate [Xeljanz Xr] 1 tab PO DAILY 06/28/18 [History] Tramadol HCl [Ultram] 100 mg PO QID PRN 06/28/18 [History] Doxycycline 100 mg PO BID 10 Days #20 capsule 06/30/18 [Rx] Ipratropium/Albuterol Neb [Duoneb] 3 ml IH [id number] PRN #10 inhsol 06/30/18 [Rx] Nebulizer and Compressor [Ombra Compressor System] 1 each MC PRN PRN #1 each 03/12 [Rx] Allergies/Adverse Reactions: 3 Allergy/AdvReac Type Severity Reaction Status Date / Time levofloxacin [From Levaquin] Allergy Hives Verified 06/24/16 08:07 Sulfa (Sulfonamide Allergy Hives Verified 06/24/16 08:07 Antibiotics) Date of admission: 06/28/18 16:45 Primary care physician: Tricia Carey, Consults: 06/28/18 18:19 Consult to Nutrition [CONS] Routine Comment: Consulting Provider: NUTRITION Reason for Dietary Consult: PO Supplementation 06/30/18 07:06 Consult to Pulmonology [CONS] Routine Consulting Provider: [facility] [place] Reason for Consult: sepsis secondary to extensive right sided PNA, immunocompromised Call Completed: No - Constitutional Vitals: Temp Pulse Resp BP Pulse Ox 98.2 F 91 17 157/83 99 06/30/18 07:44 06/30/18 12:34 06/30/18 12:34 06/30/18 12:34 06/30/18 12:34 Exam: Family at bedside General: Patient is alert, oriented, no acute distress, speaks in full sentences , overweight Head: atraumatic, normocephalic, Eye: normal appearance, PERRL, no scleral icterus, no conjunctival injection ENT: mucous membranes moist, normal external ear exam Neck: normal inspection, trachea midline, full ROM, no carotid bruits Chest: normal inspection, symmetric chest rise Respiratory: Good respiratory effort. Has crackles in the right posterior lung field infrascapularly, left posterior lung field is clear, no wheezing Cardiovascular: Tachycardic. s1 and s2 No clicks, rubs, gallops, or murmors. Abdomen: Bowel sounds present normoactive x-4 quadrants. Abdomen is soft, nondistended. no Epigastric tenderness. No guarding or rebound. No organomegaly noted, obese musculoskeletal: Spontaneously moving all extremities. no edema, no calf tenderness, all her deviation and RA nodules on the PIP and DIP bilateral hands Skin: warm, dry, intact. Neuro: Alert and oriented x4. Sensation light touch intact. Cranial nerves 2- 12 is intact. Not aphasic, rapid hand movements intact, [id number] intact, Psych: Patient's affect is normal - Patient Status Disposition: Home, Self-Care Condition: Fair Overall status at discharge: patient is progressing back to baseline - Discharge Instructions Follow Up With: Tricia Carey CNP [Primary Care Provider] - 07/07/18 1:00 pm Pranav Baptiste DPM [Partnered Physician] - 07/16/18 9:50 am Miguel Angel Shah MD [Partnered Physician] - 07/12/18 8:30 am Bethany Minor MD [Partnered Physician] - - Diet and Activity Activity: increase activity as tolerated Diet: diabetic diet - VTE Documentation of Mechanical Device: Graduated compression elastic hosiery
[2018-06-30] MEDS: Folic Acid 1 MG TABLET PO SCH (12:54)
[2018-06-30] MEDS: Diclofenac Sodium [Voltaren] 1 APPL TP SCH (12:56)
[2018-06-30] MEDS ORDERED: Aminoglycoside Consult 1 EACH MC ONE (14:01)
[2018-07-01 21:39] LABS: QuantiFERON Mitogen minus NIL 4.61 IU/mL
--- NOTE | 2018-07-01 23:40 | Electrocardiograph Report ---
[place] [id number] Test Date: 2018-06-28 Pat Name: Liss Khan Department: EXAM23 Room: 2NE27 Gender: F [employer]: : [id number] Requested By: Luan Blum Order Number: [id number] Reading MD: Maria Victoria Nicole Measurements Intervals Hoffman Rate: 100 P: NE: QRS: 63 QRSD: 89 T: 44 QT: 315 QTc: 407 Interpretive Statements Normal sinus rhythm Borderline T wave abnormalities Electronically Signed On 07-01-2018 23:38:54 EDT by Maria Victoria Nicole Electronically Signed On 07-01-2018 23:43:24 EDT by Maria Victoria Nicole
[2018-07-02 13:41] LABS: QuantiFERON NIL 0.03 IU/mL; QuantiFERON-TB Gold In-Tube NEGATIVE (Negative)
== END 2018-06-30 14:02 | disposition home or self-care (01) | DRG 871 ==
LOC: 2NENU 13:51 → EMEROOARM 13:51 → SUATTDRO 16:45 → 2NENU 17:30
PROVIDERS: ADMIT Student in an Organized Health Care Education/Training Program; ATTEND Internal Medicine